=== PATIENT | male | born 1965 | race American Indian/Alaskan Native ===

== ENCOUNTER 2021-10-05 14:00 | Emergency (ER) | payer SELFPAY ==
--- NOTE | 2021-10-05 14:47 | Emergency Department Report ---
ED General Adult HPI - General Chief complaint: Hyperglycemia Stated complaint: New onset DM Time Seen by Provider: 10/05/21 14:25 Source: patient Mode of arrival: Ambulatory Limitations: No Limitations - History of Present Illness Initial comments: Patient is a 56-year-old male presents emergency room with complaints of new onset diabetes. He reports that he went to [facility] and was advised that his blood glucose was reading as high which according to the note by the doctor is greater than 500. The note from the doctor states that patient received 15 units of insulin subcutaneous and was sent to the emergency department. Patient states that he has been experiencing dry mouth, increased thirst, urinary frequency, nausea, lightheadedness, generalized weakness, fatigue for approximately 4 days. He states he had one episode of vomiting but has been able to tolerate p.o. intake. He denies any diarrhea, shortness of breath, cough, chest pain. He states he had lab work performed 6 months ago which according to patient was normal. He states he has regular visits every 6 months. He denies any family history of diabetes. Patient states that he was previously drinking a lot of juice and previously had a poor diet. Severity scale (0 -10): 0 - Related Data Previous Rx's Medication Instructions Recorded Last Taken Type metFORMIN [Glucophage] 500 mg PO BID #60 tablet 10/05/21 Unknown Rx Famotidine [Pepcid] 20 mg PO BID #60 tablet 10/06/21 Unknown Rx Ondansetron [Zofran Odt] 4 mg PO Q8HR #15 tab.rapdis 10/06/21 Unknown Rx Pantoprazole [Protonix] 40 mg PO QHS #30 tablet 10/06/21 Unknown Rx Allergies Allergy/AdvReac Type Severity Reaction Status Date / Time No Known Allergies Allergy Verified 10/06/21 14:48 ED Review of Systems ROS: Stated complaint: New onset DM Other details as noted in HPI Comment: All other systems reviewed and negative ED Past Medical Hx - Medications Home Medications: Home Medications Medication Instructions Recorded Confirmed Last Taken Type metFORMIN [Glucophage] 500 mg PO BID #60 tablet 10/05/21 Unknown Rx Famotidine [Pepcid] 20 mg PO BID #60 tablet 10/06/21 Unknown Rx Ondansetron [Zofran Odt] 4 mg PO Q8HR #15 tab.rapdis 10/06/21 Unknown Rx Pantoprazole [Protonix] 40 mg PO QHS #30 tablet 10/06/21 Unknown Rx ED Physical Exam - General Limitations: No Limitations General appearance: alert, in no apparent distress - Head Head exam: Present: atraumatic, normocephalic - ENT ENT exam: Present: mucous membranes dry - Respiratory Respiratory exam: Present: normal lung sounds bilaterally. Absent: respiratory distress, wheezes, rales, rhonchi, stridor, chest wall tenderness, accessory muscle use, decreased breath sounds, prolonged expiratory - Cardiovascular Cardiovascular Exam: Present: normal rhythm, tachycardia - GI/Abdominal GI/Abdominal exam: Present: soft, normal bowel sounds. Absent: distended, tenderness, guarding, rebound, rigid - Neurological Exam Neurological exam: Present: alert, oriented X3 - Psychiatric Psychiatric exam: Present: normal affect, normal mood - Skin Skin exam: Present: warm, dry, intact ED Course Vital Signs 10/05/21 10/05/21 10/05/21 14:04 15:49 15:54 Temperature 98.3 F Pulse Rate 122 H Respiratory 18 Rate Blood Pressure Blood Pressure [Left] Blood Pressure 134/95 [Right] O2 Sat by Pulse 96 95 98 Oximetry 10/05/21 10/05/21 10/05/21 15:58 16:00 16:30 Temperature Pulse Rate 104 H 103 H 108 H Respiratory 14 22 21 Rate Blood Pressure 175/88 151/97 Blood Pressure [Left] Blood Pressure 153/93 [Right] O2 Sat by Pulse 98 96 96 Oximetry 10/05/21 10/05/21 10/05/21 17:00 17:30 18:00 Temperature Pulse Rate 106 H 101 H 97 H Respiratory 20 16 21 Rate Blood Pressure 162/95 141/86 140/94 Blood Pressure [Left] Blood Pressure [Right] O2 Sat by Pulse 96 95 94 Oximetry 10/05/21 10/05/21 10/05/21 18:30 19:00 19:30 Temperature Pulse Rate 111 H 97 H 91 H Respiratory Rate Blood Pressure 160/112 142/62 184/68 Blood Pressure [Left] Blood Pressure [Right] O2 Sat by Pulse 99 96 96 Oximetry 10/05/21 10/05/21 10/05/21 19:45 20:00 20:30 Temperature 98.3 F Pulse Rate 95 H 82 85 Respiratory 20 Rate Blood Pressure 189/88 179/62 Blood Pressure 184/68 [Left] Blood Pressure [Right] O2 Sat by Pulse 97 96 94 Oximetry 10/05/21 10/05/21 10/05/21 21:00 21:30 22:00 Temperature Pulse Rate 102 H 98 H 90 Respiratory Rate Blood Pressure 143/58 140/83 158/113 Blood Pressure [Left] Blood Pressure [Right] O2 Sat by Pulse 97 97 95 Oximetry 10/05/21 22:30 Temperature Pulse Rate 86 Respiratory Rate Blood Pressure 151/104 Blood Pressure [Left] Blood Pressure [Right] O2 Sat by Pulse 97 Oximetry ED Medical Decision Making - Lab Data Result diagrams: 10/05/21 14:46 10/05/21 14:46 Lab Results 10/05/21 10/05/21 10/05/21 Range/Units 14:46 14:46 14:46 WBC 9.7 (4.5-11.0) K/mm3 RBC 6.36 H (3.65-5.03) M/mm3 Hgb 16.8 H (11.8-15.2) gm/dl Hct 54.5 H (35.5-45.6) % MCV 86 (84-94) fl MCH 27 L (28-32) pg MCHC 31 L (32-34) % RDW 13.3 (13.2-15.2) % Plt Count 299 (140-440) K/mm3 Lymph % (Auto) 11.2 L (13.4-35.0) % Forrest % (Auto) 8.0 H (0.0-7.3) % Eos % (Auto) 0.1 (0.0-4.3) % Baso % (Auto) 0.6 (0.0-1.8) % Lymph # (Auto) 1.1 L (1.2-5.4) K/mm3 Forrest # (Auto) 0.8 (0.0-0.8) K/mm3 Eos # (Auto) 0.0 (0.0-0.4) K/mm3 Baso # (Auto) 0.1 (0.0-0.1) K/mm3 Seg Neutrophils % 80.1 H (40.0-70.0) % Seg Neutrophils # 7.8 H (1.8-7.7) K/mm3 VBG pH 7.363 (7.320-7.420) Sodium 140 (137-145) mmol/L Potassium 5.6 H (3.6-5.0) mmol/L Chloride 96.6 L (98-107) mmol/L Carbon Dioxide 22 (22-30) mmol/L Anion Gap 27 mmol/L BUN 29 H (9-20) mg/dL Creatinine 1.3 (0.8-1.3) mg/dL Estimated GFR > 60 ml/min BUN/Creatinine Ratio 22 % Glucose 695 H* (75-100) mg/dL POC Glucose (70-105) mg/dL Calcium 10.9 H (8.4-10.2) mg/dL Total Bilirubin 0.60 (0.1-1.2) mg/dL AST 14 (5-40) units/L ALT 30 (7-56) units/L Alkaline Phosphatase 98 (35-129) units/L Total Protein 9.6 H (6.3-8.2) g/dL Albumin 4.8 (3.9-5) g/dL Albumin/Globulin Ratio 1.0 % Lipase 38 (13-60) units/L Urine Color (Yellow) Urine Turbidity (Clear) Urine pH (5.0-7.0) Ur Specific Welsh (1.003-1.030) Urine Protein (Negative) mg/dL Urine Glucose (UA) (Negative) mg/dL Urine Ketones (Negative) mg/dL Urine Blood (Negative) Urine Nitrite (Negative) Urine Bilirubin (Negative) Urine Urobilinogen (<2.0) mg/dL Ur Leukocyte Esterase (Negative) Urine WBC (Auto) (0.0-6.0) /HPF Urine RBC (Auto) (0.0-6.0) /HPF U Epithel Cells (Auto) (0-13.0) /HPF Urine Mucus /HPF 10/05/21 10/05/21 10/05/21 Range/Units 16:18 17:32 18:50 WBC (4.5-11.0) K/mm3 RBC (3.65-5.03) M/mm3 Hgb (11.8-15.2) gm/dl Hct (35.5-45.6) % MCV (84-94) fl MCH (28-32) pg MCHC (32-34) % RDW (13.2-15.2) % Plt Count (140-440) K/mm3 Lymph % (Auto) (13.4-35.0) % Forrest % (Auto) (0.0-7.3) % Eos % (Auto) (0.0-4.3) % Baso % (Auto) (0.0-1.8) % Lymph # (Auto) (1.2-5.4) K/mm3 Forrest # (Auto) (0.0-0.8) K/mm3 Eos # (Auto) (0.0-0.4) K/mm3 Baso # (Auto) (0.0-0.1) K/mm3 Seg Neutrophils % (40.0-70.0) % Seg Neutrophils # (1.8-7.7) K/mm3 VBG pH (7.320-7.420) Sodium (137-145) mmol/L Potassium (3.6-5.0) mmol/L Chloride (98-107) mmol/L Carbon Dioxide (22-30) mmol/L Anion Gap mmol/L BUN (9-20) mg/dL Creatinine (0.8-1.3) mg/dL Estimated GFR ml/min BUN/Creatinine Ratio % Glucose (75-100) mg/dL POC Glucose 595 H 432 H 379 H (70-105) mg/dL Calcium (8.4-10.2) mg/dL Total Bilirubin (0.1-1.2) mg/dL AST (5-40) units/L ALT (7-56) units/L Alkaline Phosphatase (35-129) units/L Total Protein (6.3-8.2) g/dL Albumin (3.9-5) g/dL Albumin/Globulin Ratio % Lipase (13-60) units/L Urine Color (Yellow) Urine Turbidity (Clear) Urine pH (5.0-7.0) Ur Specific Welsh (1.003-1.030) Urine Protein (Negative) mg/dL Urine Glucose (UA) (Negative) mg/dL Urine Ketones (Negative) mg/dL Urine Blood (Negative) Urine Nitrite (Negative) Urine Bilirubin (Negative) Urine Urobilinogen (<2.0) mg/dL Ur Leukocyte Esterase (Negative) Urine WBC (Auto) (0.0-6.0) /HPF Urine RBC (Auto) (0.0-6.0) /HPF U Epithel Cells (Auto) (0-13.0) /HPF Urine Mucus /HPF 10/05/21 10/05/21 Range/Units 19:50 Unknown WBC (4.5-11.0) K/mm3 RBC (3.65-5.03) M/mm3 Hgb (11.8-15.2) gm/dl Hct (35.5-45.6) % MCV (84-94) fl MCH (28-32) pg MCHC (32-34) % RDW (13.2-15.2) % Plt Count (140-440) K/mm3 Lymph % (Auto) (13.4-35.0) % Forrest % (Auto) (0.0-7.3) % Eos % (Auto) (0.0-4.3) % Baso % (Auto) (0.0-1.8) % Lymph # (Auto) (1.2-5.4) K/mm3 Forrest # (Auto) (0.0-0.8) K/mm3 Eos # (Auto) (0.0-0.4) K/mm3 Baso # (Auto) (0.0-0.1) K/mm3 Seg Neutrophils % (40.0-70.0) % Seg Neutrophils # (1.8-7.7) K/mm3 VBG pH (7.320-7.420) Sodium (137-145) mmol/L Potassium (3.6-5.0) mmol/L Chloride (98-107) mmol/L Carbon Dioxide (22-30) mmol/L Anion Gap mmol/L BUN (9-20) mg/dL Creatinine (0.8-1.3) mg/dL Estimated GFR ml/min BUN/Creatinine Ratio % Glucose (75-100) mg/dL POC Glucose 363 H (70-105) mg/dL Calcium (8.4-10.2) mg/dL Total Bilirubin (0.1-1.2) mg/dL AST (5-40) units/L ALT (7-56) units/L Alkaline Phosphatase (35-129) units/L Total Protein (6.3-8.2) g/dL Albumin (3.9-5) g/dL Albumin/Globulin Ratio % Lipase (13-60) units/L Urine Color Straw (Yellow) Urine Turbidity Clear (Clear) Urine pH 5.0 (5.0-7.0) Ur Specific Welsh 1.024 (1.003-1.030) Urine Protein <15 mg/dl (Negative) mg/dL Urine Glucose (UA) >=500 (Negative) mg/dL Urine Ketones Tr (Negative) mg/dL Urine Blood Neg (Negative) Urine Nitrite Neg (Negative) Urine Bilirubin Neg (Negative) Urine Urobilinogen < 2.0 (<2.0) mg/dL Ur Leukocyte Esterase Neg (Negative) Urine WBC (Auto) 2.0 (0.0-6.0) /HPF Urine RBC (Auto) 1.0 (0.0-6.0) /HPF U Epithel Cells (Auto) < 1.0 (0-13.0) /HPF Urine Mucus Few /HPF Vital Signs 10/05/21 10/05/21 10/05/21 14:04 15:49 15:54 Temperature 98.3 F Pulse Rate 122 H Respiratory 18 Rate Blood Pressure Blood Pressure [Left] Blood Pressure 134/95 [Right] O2 Sat by Pulse 96 95 98 Oximetry 10/05/21 10/05/21 10/05/21 15:58 16:00 16:30 Temperature Pulse Rate 104 H 103 H 108 H Respiratory 14 22 21 Rate Blood Pressure 175/88 151/97 Blood Pressure [Left] Blood Pressure 153/93 [Right] O2 Sat by Pulse 98 96 96 Oximetry 10/05/21 10/05/21 10/05/21 17:00 17:30 18:00 Temperature Pulse Rate 106 H 101 H 97 H Respiratory 20 16 21 Rate Blood Pressure 162/95 141/86 140/94 Blood Pressure [Left] Blood Pressure [Right] O2 Sat by Pulse 96 95 94 Oximetry 10/05/21 19:45 Temperature 98.3 F Pulse Rate 95 H Respiratory 20 Rate Blood Pressure Blood Pressure 184/68 [Left] Blood Pressure [Right] O2 Sat by Pulse 97 Oximetry Labs 10/05/21 10/05/21 10/05/21 14:46 14:46 14:46 WBC 9.7 RBC 6.36 H Hgb 16.8 H Hct 54.5 H MCV 86 MCH 27 L MCHC 31 L RDW 13.3 Plt Count 299 Lymph % (Auto) 11.2 L Forrest % (Auto) 8.0 H Eos % (Auto) 0.1 Baso % (Auto) 0.6 Lymph # (Auto) 1.1 L Forrest # (Auto) 0.8 Eos # (Auto) 0.0 Baso # (Auto) 0.1 Seg Neutrophils % 80.1 H Seg Neutrophils # 7.8 H VBG pH 7.363 Sodium 140 Potassium 5.6 H Chloride 96.6 L Carbon Dioxide 22 Anion Gap 27 BUN 29 H Creatinine 1.3 Estimated GFR > 60 BUN/Creatinine Ratio 22 Glucose 695 H* POC Glucose Calcium 10.9 H Total Bilirubin 0.60 AST 14 ALT 30 Alkaline Phosphatase 98 Total Protein 9.6 H Albumin 4.8 Albumin/Globulin Ratio 1.0 Lipase 38 Urine Color Urine Turbidity Urine pH Ur Specific Welsh Urine Protein Urine Glucose (UA) Urine Ketones Urine Blood Urine Nitrite Urine Bilirubin Urine Urobilinogen Ur Leukocyte Esterase Urine WBC (Auto) Urine RBC (Auto) U Epithel Cells (Auto) Urine Mucus 10/05/21 10/05/21 10/05/21 16:18 17:32 18:50 WBC RBC Hgb Hct MCV MCH MCHC RDW Plt Count Lymph % (Auto) Forrest % (Auto) Eos % (Auto) Baso % (Auto) Lymph # (Auto) Forrest # (Auto) Eos # (Auto) Baso # (Auto) Seg Neutrophils % Seg Neutrophils # VBG pH Sodium Potassium Chloride Carbon Dioxide Anion Gap BUN Creatinine Estimated GFR BUN/Creatinine Ratio Glucose POC Glucose 595 H 432 H 379 H Calcium Total Bilirubin AST ALT Alkaline Phosphatase Total Protein Albumin Albumin/Globulin Ratio Lipase Urine Color Urine Turbidity Urine pH Ur Specific Welsh Urine Protein Urine Glucose (UA) Urine Ketones Urine Blood Urine Nitrite Urine Bilirubin Urine Urobilinogen Ur Leukocyte Esterase Urine WBC (Auto) Urine RBC (Auto) U Epithel Cells (Auto) Urine Mucus 10/05/21 10/05/21 10/05/21 19:50 22:23 Unknown WBC RBC Hgb Hct MCV MCH MCHC RDW Plt Count Lymph % (Auto) Forrest % (Auto) Eos % (Auto) Baso % (Auto) Lymph # (Auto) Forrest # (Auto) Eos # (Auto) Baso # (Auto) Seg Neutrophils % Seg Neutrophils # VBG pH Sodium Potassium Chloride Carbon Dioxide Anion Gap BUN Creatinine Estimated GFR BUN/Creatinine Ratio Glucose POC Glucose 363 H 244 H Calcium Total Bilirubin AST ALT Alkaline Phosphatase Total Protein Albumin Albumin/Globulin Ratio Lipase Urine Color Straw Urine Turbidity Clear Urine pH 5.0 Ur Specific Welsh 1.024 Urine Protein <15 mg/dl Urine Glucose (UA) >=500 Urine Ketones Tr Urine Blood Neg Urine Nitrite Neg Urine Bilirubin Neg Urine Urobilinogen < 2.0 Ur Leukocyte Esterase Neg Urine WBC (Auto) 2.0 Urine RBC (Auto) 1.0 U Epithel Cells (Auto) < 1.0 Urine Mucus Few - Medical Decision Making Patient is a 56-year-old male presents emergency room with complaints of new onset diabetes. He reports that he went to [facility] and was advised that his blood glucose was reading as high which according to the note by the doctor is greater than 500. The note from the doctor states that patient received 15 units of insulin subcutaneous and was sent to the emergency department. Patient states that he has been experiencing dry mouth, increased thirst, urinary frequency, nausea, lightheadedness, generalized weakness, fat igue for approximately 4 days. He states he had one episode of vomiting but has been able to tolerate p.o. intake. He denies any diarrhea, shortness of breath, cough, chest pain. He states he had lab work performed 6 months ago which according to patient was normal. He states he has regular visits every 6 months. He denies any family history of diabetes. Patient states that he was previously drinking a lot of juice and previously had a poor diet. Initial vitals with tachycardia which improved upon repeat. Lab significant for elevated blood glucose at 695. Patient's venous pH is normal, he has no significant ketones in his urine, do not suspect DKA patient given 2 L normal saline and multiple doses of IV insulin with improvement of blood glucose. Patient will be started on Metformin 500 mg twice daily and discussed the importance of lifestyle modifications, diet, keeping a blood sugar log and following up with primary care doctor. Discussed return precautions. Advised return to emergency room for any new or symptoms. Critical care attestation.: If time is entered above; I have spent that time in minutes in the direct care of this critically ill patient, excluding procedure time. ED Disposition Clinical Impression: Diabetes mellitus with hyperglycemia Qualifiers: Diabetes mellitus type: type 2 Diabetes mellitus vermin exterminator insulin use: without assisted use Qualified Code(s): E11.65 - Type 2 diabetes mellitus with hyperglycemia Disposition: HOME / SELF CARE / HOMELESS Is pt being admited?: No Does the pt Need Aspirin: No Condition: Stable Instructions: Carbohydrate Counting for Diabetes Mellitus, Adult, Preventing Diabetes Mellitus Complications, Diabetes Mellitus and Exercise, Diabetes Me llitus Type 2 in Adults (ED) Additional Instructions: Please take medication as prescribed. Increase your water intake. Please avoid sugary drinks such as juice. Please eat a low sugar/low carbohydrate diet. Follow-up with your primary care doctor. Please keep a blood sugar log. Return to emergency room for any new or worsening symptoms. Prescriptions: metFORMIN [Glucophage] 500 mg PO BID #60 tablet Referrals: [facility] [Provider Group] - 2-3 Days Time of Disposition: 20:46 Print Language: BELGIAN
[2021-10-05] MEDS ORDERED: SODIUM CHLORIDE 0.9% 1000 ML 1,000 ML IV ONE ×2 (15:15)
[2021-10-05 15:27] LABS: Alanine Aminotransferase 30 units/L (7-56); Albumin 4.8 g/dL (3.9-5); BUN/Creatinine Ratio 22; Blood Urea Nitrogen 29 mg/dL (9-20); Calcium 10.9 mg/dL (8.4-10.2); Hemolysis Index 27
[2021-10-05] MEDS ORDERED: INSULIN REGULAR, HUMAN 100 UNITS/1 ML IV ONE ×3 (15:32→19:55)
[2021-10-05 15:45] LABS: Bilirubin,Urine NEG (Negative); Blood,Urine NEG (Negative); Color,Urine Straw (Yellow); Mucus,Urine FEW /HPF; Protein,Urine <15 mg/dL mg/dL (Negative); Urobilinogen,Urine < 2.0 mg/dL (<2.0)
[2021-10-05 17:04] LABS: Basophils # (Auto) 0.1 K/mm3 (0.0-0.1); Eosinophils % (Auto) 0.1 % (0.0-4.3); Monocytes # (Auto) 0.8 K/mm3 (0.0-0.8)
[2021-10-05 17:05] LABS: Hematocrit 54.5 % (35.5-45.6); Hemoglobin 16.8 gm/dl (11.8-15.2); Mean Corpuscular Volume 86 fl (84-94); Red Blood Count 6.36 M/mm3 (3.65-5.03)
[2021-10-05 17:06] LABS: Basophils % (Auto) 0.6 % (0.0-1.8); Lymphocytes # (Auto) 1.1 K/mm3 (1.2-5.4); Lymphocytes % (Auto) 11.2 % (13.4-35.0); Mean Corpuscular HGB Conc 31 % (32-34); Platelet Count 299 K/mm3 (140-440); Red Cell Distribution Width 13.3 % (13.2-15.2)
[2021-10-05 23:10] VITALS: BP 151/104
== END 2021-10-05 23:10 | disposition home or self-care (01) ==
LOC: ED 14:00
DX: E11.65 Type 2 diabetes mellitus with hyperglycemia (principal)
CPT/HCPCS: 36415; 80053; 81001; 82805; 82962; 83690; 85025; 96361; 96374; 96376; 99283; J7030; Q0162; Q9967; J1815

== ENCOUNTER 2021-10-06 14:44 | Emergency (ER) | payer SELFPAY ==
[2021-10-06] MEDS ORDERED: SODIUM CHLORIDE 0.9% 1000 ML 2,000 ML IV ONE (14:59)
[2021-10-06] MEDS ORDERED: ONDANSETRON 4 MG/2 ML INJ IV ONE ×2 (14:59→20:17)
--- NOTE | 2021-10-06 14:59 | Emergency Department Report ---
ED General Adult HPI - General Chief complaint: Hyperglycemia Stated complaint: BLOOD SUGAR OVER 500 Time Seen by Provider: 10/06/21 14:50 Source: patient Mode of arrival: Ambulatory Limitations: No Limitations - History of Present Illness Initial comments: 56-year-old male presents to the ER today with complaints of elevated blood sugar, generalized weakness and dizziness. Patient states that he found out that he was diabetic yesterday after going to his primary care doctors office for his visit because for the past 1 week he has been "feeling bad". He states that his had generalized fatigue, weakness and has been feeling dizzy and he has had urinary frequency. He states that when his primary care doctor checked his blood sugar he was high and he was sent here to the ER yesterday for further evaluation. Patient states that when he got here, they gave him medications including fluids to bring his sugar down and when he got down to about 200 I discharged him home. Patient states that his primary care doctor did prescribe him Metformin 500 mg to take twice a day as well as a prescription for insulin. He was able to get the Metformin but he states that [facility] did not have the insulin available. He states that he thinks his insulin, and is unsure of the name of the medication. He states that this morning when checked his blood sugar was 412. He took his Metformin, but when he rechecked it was 500 and so he came here to the ER. In addition to the generalized weakness, dizziness, and fatigue he reports epigastric pain and he did vomit once yesterday. He denies any diarrhea, chest pain, shortness of breath, fever or chills. Other than diabetes he denies any other significant past history. MD Complaint: Elevated Blood sugar/weakness/dizziness -: Gradual, week(s) (1) - Related Data Previous Rx's Medication Instructions Recorded Last Taken Type metFORMIN [Glucophage] 500 mg PO BID #60 tablet 10/05/21 Unknown Rx Famotidine [Pepcid] 20 mg PO BID #60 tablet 10/06/21 Unknown Rx Ondansetron [Zofran Odt] 4 mg PO Q8HR #15 tab.rapdis 10/06/21 Unknown Rx Pantoprazole [Protonix] 40 mg PO QHS #30 tablet 10/06/21 Unknown Rx Allergies Allergy/AdvReac Type Severity Reaction Status Date / Time No Known Allergies Allergy Verified 10/06/21 14:48 ED Review of Systems ROS: Stated complaint: BLOOD SUGAR OVER 500 Other details as noted in HPI ED Past Medical Hx - Medications Home Medications: Home Medications Medication Instructions Recorded Confirmed Last Taken Type metFORMIN [Glucophage] 500 mg PO BID #60 tablet 10/05/21 Unknown Rx Famotidine [Pepcid] 20 mg PO BID #60 tablet 10/06/21 Unknown Rx Ondansetron [Zofran Odt] 4 mg PO Q8HR #15 tab.rapdis 10/06/21 Unknown Rx Pantoprazole [Protonix] 40 mg PO QHS #30 tablet 10/06/21 Unknown Rx ED Physical Exam - General Limitations: No Limitations ED Course Vital Signs 10/06/21 10/06/21 14:55 21:45 Temperature 97.9 F Pulse Rate 111 H 96 H Respiratory 18 14 Rate Blood Pressure 125/78 Blood Pressure 141/87 [Left] O2 Sat by Pulse 96 100 Oximetry ED Medical Decision Making - Lab Data Result diagrams: 10/06/21 15:10 10/06/21 16:48 - Radiology Data Radiology results: report reviewed Patient: KIMMIE LONG MR#: [id number] : 1965 Acct:[id number] Age/Sex: 56 / M ADM Date: 10/06/21 Loc: ED Attending Dr: Ordering Physician: MAU MARIA Date of Service: 10/06/21 Procedure(s): CT abdomen pelvis w con Accession Number(s): [id number] cc: MAU MARIA CT ABDOMEN AND PELVIS WITH IV CONTRAST INDICATION: Epigastric pain x2days [id number] 100ml. COMPARISON: None available. TECHNIQUE: Axial CT images were obtained through the abdomen and pelvis after 100 mL Omnipaque [address] scans at this location are performed using CT dose reduction for ALARA by means of automated exposure control. FINDINGS -- ABDOMEN: Lung Bases: No acute abnormality. Liver: Normal. Gallbladder: Normal. Bile Ducts: Normal. Pancreas: Normal. Spleen: Normal. Adrenals: Normal. Right Kidney and Proximal Ureter: Normal. Left Kidney and Proximal Ureter: Normal. Stomach and Bowel: Increased enhancement involving the distal gastric antrum mucosa with extension into the duodenum.. Lymph Nodes: No significant adenopathy. Aorta: No significant abnormality. IVC: Normal. Additional Findings: None. FINDINGS -- PELVIS: Urinary Bladder and Distal Ureters: Normal. Reproductive Organs: No acute abnormality. Appendix: The appendix is slightly fluid distended but there is no periappendiceal inflammation, ultimately nonspecific. Bowel: No acute abnormality. Free Fluid: None. Lymph Nodes: No significant adenopathy. Additional Findings: None. Skeletal System: No acute abnormality. IMPRESSION: Moderately developed gastritis especially of the distal gastric antrum and proximal duodenum. Signer Name: Chuck Oconnell MD Signed: 10/06/2021 9:16 PM Workstation Name: [id number] Transcribed By: NORMA Dictated By: Chuck Oconnell MD Electronically Authenticated By: Chuck Oconnell MD Signed Date/Time: 10/06/212115 DD/ 11 TD/TT: - Medical Decision Making All labs reviewed, patient blood sugar has been elevated, but after 2 L IV fluids and 17 units of insulin it is improving. His work-up does not suggest DKA. Abdominal CT shows concern time for gastritis but otherwise unremarkable. Patient currently not toxic or ill-appearing and not in any significant pain or respiratory distress. She is neurologically intact with a normal gait. He has no chest pain or shortness of breath. His repeat vital signs are stable. Discussed results with patient. Due to him getting the IV dye he was instructed to not take the Metformin for 48 hours but he does have a prescription for another the diabetic medication at the pharmacy. He thinks his insulin but he is not exactly sure. Patient instructed to get that prescription filled tomorrow and start taking it as prescribed and then restart his Metformin in 48 hours. He will be given a dose of glyburide tonight before discharge since he will not be able to take his nightly dose of Metformin. Discussed diet changes with patient and give him a diabetic diet guide for him to follow. Encourage him to continue drinking lots of fluids. He has a follow-up appointment with his PCP next week Sunday which I recommend that he continues to get lots of fluids. He understands to return to the ER if symptoms worsens or changes. Patient expressed understanding of all instructions and agree with plan. Patient stable at time of discharge. Critical care attestation.: If time is entered above; I have spent that time in minutes in the direct care of this critically ill patient, excluding procedure time. ED Disposition Clinical Impression: Gastritis Diabetes mellitus with hyperglycemia Qualifiers: Diabetes mellitus type: type 2 Diabetes mellitus correction insulin use: without correction use Qualified Code(s): E11.65 - Type 2 diabetes mellitus with hyperglycemia Disposition: HOME / SELF CARE / HOMELESS Is pt being admited?: No Does the pt Need Aspirin: No Condition: Stable Instructions: Gastritis, Adult, Type 2 Diabetes Mellitus, Self Care, Adult, [id number], Preventing Diabetes Mellitus Complications, Diabetes Mellitus Type 2 in Adults (ED) Additional Instructions: I recommend that you take your dose of metformin, but after 48hrs since you recieved IV dye. . 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 Take the pepcid and the protonix as prescribed to help your gastritis. Take the zofran as prescribed for nausea. Continue to drink lots of water. Continue to check your BS no more than 2-3 times per day. Keep record of your blood sugar. Follow up with your PCP sunday. Return to ED if worse. Prescriptions: Pantoprazole [Protonix] 40 mg PO QHS #30 tablet Famotidine [Pepcid] 20 mg PO BID #60 tablet Ondansetron [Zofran Odt] 4 mg PO Q8HR #15 tab.alicja Referrals: PRIMARY CARE, [Primary Care Provider] - 3-5 Days Forms: Work/School Release Form(ED) Time of Disposition: 21:30
[2021-10-06 15:46] LABS: Basophils % (Auto) 0.3 % (0.0-1.8); Eosinophils % (Auto) 0.4 % (0.0-4.3); Hematocrit 51.5 % (35.5-45.6); Hemoglobin 16.2 gm/dl (11.8-15.2); Lymphocytes # (Auto) 1.7 K/mm3 (1.2-5.4); Lymphocytes % (Auto) 14.8 % (13.4-35.0); Mean Corpuscular HGB Conc 32 % (32-34); Mean Corpuscular Volume 84 fl (84-94); Monocytes # (Auto) 0.8 K/mm3 (0.0-0.8); Monocytes % (Auto) 7.1 % (0.0-7.3); Platelet Count 317 K/mm3 (140-440); Red Blood Count 6.11 M/mm3 (3.65-5.03); Red Cell Distribution Width 13.5 % (13.2-15.2)
[2021-10-06 17:30] LABS: Alanine Aminotransferase 24 units/L (7-56); Albumin 4.4 g/dL (3.9-5); BUN/Creatinine Ratio 26; Blood Urea Nitrogen 29 mg/dL (9-20); Calcium 9.7 mg/dL (8.4-10.2); Hemolysis Index 6
[2021-10-06] MEDS ORDERED: INSULIN REGULAR, HUMAN 100 UNITS/1 ML IV ONE ×2 (17:36→19:28)
[2021-10-06 18:25] LABS: Bilirubin,Urine NEG (Negative); Blood,Urine NEG (Negative); Color,Urine Straw (Yellow); Mucus,Urine FEW /HPF; Protein,Urine <15 mg/dL mg/dL (Negative); RBC,Urine < 1.0 /HPF (0.0-6.0); Urobilinogen,Urine < 2.0 mg/dL (<2.0)
[2021-10-06] MEDS ORDERED: MORPHINE 4 MG/1 ML INJ IV ONE (20:16)
[2021-10-06] MEDS ORDERED: FAMOTIDINE 20 MG TAB PO ONE (20:16)
--- NOTE | 2021-10-06 21:20 | Cat Scan Report ---
CT ABDOMEN AND PELVIS WITH IV CONTRAST INDICATION: Epigastric pain x2days [id number] 100ml. COMPARISON: None available. TECHNIQUE: Axial CT images were obtained through the abdomen and pelvis after 100 mL Omnipaque [address] scans at this location are performed using CT dose reduction for ALARA by means of automated e xposure control. FINDINGS -- ABDOMEN: Lung Bases: No acute abnormality. Liver: Normal. Gallbladder: Normal. Bile Ducts: Normal. Pancreas: Normal. Spleen: Normal. Adrenals: Normal. Right Kidney and Proximal Ureter: Normal. Left Kidney and Proximal Ureter: Normal. Stomach and Bowel: Increased enhancement involving the distal gastric antrum mucosa with extension in to the duodenum.. Lymph Nodes: No significant adenopathy. Aorta: No significant abnormality. IVC: Normal. Additional Findings: None. FINDINGS -- PELVIS: Urinary Bladder and Distal Ureters: Normal. Reproductive Organs: No acute abnormality. Appendix: The appendix is slightly fluid distended but there is no periappendiceal inflammation, ulti mately nonspecific. Bowel: No acute abnormality. Free Fluid: None. Lymph Nodes: No significant adenopathy. Additional Findings: None. Skeletal System: No acute abnormality. IMPRESSION: Moderately developed gastritis especially of the distal gastric antrum and proximal duodenum. Signer Name: Chuck Oconnell MD Signed: 10/06/2021 9:16 PM Workstation Name: [id number]
[2021-10-06 21:47] VITALS: BP 141/87
[2021-10-06] MEDS ORDERED: glyBURIDE 5 MG TAB PO ONE (22:44)
== END 2021-10-06 22:20 | disposition home or self-care (01) ==
LOC: ED 14:44
DX: K29.70 Gastritis, unspecified, without bleeding (principal); E11.65 Type 2 diabetes mellitus with hyperglycemia
CPT/HCPCS: 36415; 74177; 80053; 81001; 82805; 82962; 83690; 83735; 85025; 96361; 96374; 96375; 96376; 99284; J2270; J2405; J7030; Q9967; Q0162; J1815